=== PATIENT | female | born 1980 | race Caucasian/White ===

== ENCOUNTER 2022-07-11 14:45 | Outpatient (CLI) | payer OTHER, SELFPAY ==
--- NOTE | 2022-07-11 14:40 | CRLHL7_ITS ---
For Patients: As a result of the Century Cures Act, medical imaging exams and procedure reports are released immediately into your electronic medical record. You may view this report before your referring provider. If you have questions, please contact your health care provider. BILATERAL SCREENING MAMMOGRAM WITH COMPUTER-AIDED DETECTION AND TOMOSYNTHESIS TECHNIQUE: CC and MLO views were obtained. These mammographic images have been obtained using full-field digital technique. These mammographic images were interpreted with the benefit of computer-aided detection. Breast Tomosynthesis was used in this interpretation. COMPARISON FILM: 04/13/21. FINDINGS: There are scattered areas of fibroglandular density IMPRESSION: There is no radiographic evidence for malignancy. ASSESSMENT: BI-RADS Category 1: Negative RECOMMENDATION: Routine screening mammogram in 1 year. A lay language report of this examination will be provided to the patient. Dillon Curtis M.D. Diagnostic Radiologist [email or web address] KWAME/Dictated by: Dillon Curtis MD @ 07/12/2022 1:16:00 PM (Electronically Signed)
== END 2022-07-11 14:46 | disposition home or self-care (01) ==
PROVIDERS: PCP Physician Assistant Medical
DX: Z12.31 Encounter for screening mammogram for malignant neoplasm of breast (principal)
CPT/HCPCS: 77063; 77067

== ENCOUNTER 2022-08-09 19:39 | Outpatient (CLI) | payer OTHER, SELFPAY | END 2022-08-09 19:40 | disposition home or self-care (01) | LOC: LKVREF 19:39 | PROVIDERS: PCP Physician Assistant Medical; Visit Provider Emergency Medicine | DX: I10 Essential (primary) hypertension (principal); R53.83 Other fatigue; R41.9 Unspecified symptoms and signs involving cognitive functions and awareness | CPT/HCPCS: 80048 ==

== ENCOUNTER 2022-10-13 13:21 | Outpatient (CLI) | payer OTHER, SELFPAY ==
[2022-10-13 22:12] LABS: C Reactive Protein* 0.6 mg/dL (0.5-1.0)
== END 2022-10-13 13:22 | disposition home or self-care (01) ==
PROVIDERS: PCP Physician Assistant Medical; Visit Provider Family Medicine
DX: Z00.00 Encounter for general adult medical examination without abnormal findings (principal); R53.83 Other fatigue; I10 Essential (primary) hypertension; H04.123 Dry eye syndrome of bilateral lacrimal glands; M79.7 Fibromyalgia; Z13.6 Encounter for screening for cardiovascular disorders; Z11.59 Encounter for screening for other viral diseases
CPT/HCPCS: 80053; 80061; 86039; 86140; 86225; 86235; 86803

== ENCOUNTER 2022-11-22 10:49 | Outpatient (CLI) | payer OTHER, SELFPAY ==
--- NOTE | 2022-11-22 11:00 | CRLHL7_ITS ---
For Patients: As a result of the Century Cures Act, medical imaging exams and procedure reports are released immediately into your electronic medical record. You may view this report before your referring provider. If you have questions, please contact your health care provider. INDICATION: Breast and chest pain. TECHNIQUE: Contrast-enhanced chest CT. 75 cc nonionic Isovue-370 administered. COMPARISON: Correlation is made with a two-view chest x-ray July 12, 2017. Correlation is made with a recent mammogram July 11, 2022. FINDINGS: Both lungs are expanded without pneumothoraces are infiltrates. 2 mm subpleural pulmonary nodule right lower lobe of the lung image 68 series 3 is a tiny calcified granuloma. No additional intrapulmonary nodules. The trachea and mainstem bronchi are patent and clear. The included thyroid gland and included breast tissue are within normal limits. Normal caliber thoracic aorta. No thoracic lymphadenopathy. No pleural or pericardial effusions. Images of the upper abdomen demonstrate normal adrenal glands. No definite splenomegaly. The included skeleton is within normal limits. No rib or sternal fracture identified. IMPRESSION: 1. Tiny calcified granuloma subpleural right lower lobe of the lung. 2. No acute cardiopulmonary process identified. 3. The included breasts are unremarkable. 4. The included skeleton is within normal limits. Please note that all CT scans at this facility use dose modulation, iterative reconstruction, and/or weight-based dosing when appropriate to reduce radiation dose to as low as reasonably achievable. Dictated by Geovanny Conroy MD @ 11/22/2022 3:57:29 PM (Electronically Signed)
== END 2022-11-22 10:50 | disposition home or self-care (01) ==
LOC: CT 10:50
PROVIDERS: PCP Family Medicine; Visit Provider Family Medicine
DX: R07.89 Other chest pain (principal); R91.8 Other nonspecific abnormal finding of lung field; M79.622 Pain in left upper arm
CPT/HCPCS: 71260; Q9967

== ENCOUNTER 2023-07-19 10:36 | Outpatient (CLI) | payer OTHER, SELFPAY ==
--- NOTE | 2023-07-19 10:45 | CRLHL7_ITS ---
For Patients: As a result of the Century Cures Act, medical imaging exams and procedure reports are released immediately into your electronic medical record. You may view this report before your referring provider. If you have questions, please contact your health care provider. BILATERAL SCREENING MAMMOGRAM WITH COMPUTER-AIDED DETECTION AND TOMOSYNTHESIS TECHNIQUE: CC and MLO views were obtained. These mammographic images have been obtained using full-field digital technique. These mammographic images were interpreted with the benefit of computer-aided detection. Breast Tomosynthesis was used in this interpretation. COMPARISON FILM: 07/11/22, 04/13/21. FINDINGS: There are scattered areas of fibroglandular density IMPRESSION: There is no radiographic evidence for malignancy. ASSESSMENT: BI-RADS Category 1: Negative RECOMMENDATION: Routine screening mammogram in 1 year. A lay language report of this examination will be provided to the patient. Jane Watson M.D. Diagnostic/Breast Radiologist [email or web address] KWAME/Dictated by: Jane Watson MD @ 07/20/2023 11:21:00 AM (Electronically Signed)
== END 2023-07-19 10:37 | disposition home or self-care (01) ==
PROVIDERS: PCP Family Medicine; Visit Provider Family Medicine
DX: Z12.31 Encounter for screening mammogram for malignant neoplasm of breast (principal)
CPT/HCPCS: 77063; 77067

== ENCOUNTER 2023-10-23 16:22 | Outpatient (CLI) | payer BC, OTHER, SELFPAY | END 2023-10-23 16:23 | disposition home or self-care (01) | PROVIDERS: PCP Family Medicine; Visit Provider Family Medicine | DX: I10 Essential (primary) hypertension (principal); R73.09 Other abnormal glucose; N91.1 Secondary amenorrhea; F32.A Depression, unspecified; F41.9 Anxiety disorder, unspecified | CPT/HCPCS: 80053; 80061; 82043; 82570; 83001; 84146; 84443 ==

== ENCOUNTER 2023-11-21 14:09 | Outpatient (CLI) | payer BC, OTHER, SELFPAY | END 2023-11-21 14:10 | disposition home or self-care (01) | LOC: NFLDREF 14:10 | PROVIDERS: PCP Family Medicine; Visit Provider Obstetrics & Gynecology | DX: E28.2 Polycystic ovarian syndrome (principal) | CPT/HCPCS: 83498 ==

== ENCOUNTER 2023-12-04 14:04 | Outpatient (CLI) | payer BC, OTHER, SELFPAY ==
--- NOTE | 2023-12-04 14:00 | US_ITS ---
Patient: KALLI STEINER Facility:?[facility] Patient ID:?[id number] Site Patient ID:?[id number]. Site :?[id number] Study:?US-Pelvis -12/04/2023 2:55:32 PM Ordering Physician:Alanis Weber Final Report: INDICATION: Abnormal uterine and vaginal bleeding. COMPARISON: 11/12/2021 FINDINGS: Transvaginal and transabdominal ultrasound examination of the female pelvis was performed. Initial examination is performed with transabdominal technique and transvaginal technique is used for better visualization of the pelvic structures. The uterus is anteverted with stable appearance of a small subserosal right posterior lower uterine segment fibroid which measures 1.6 x 1.6 x 1.2 centimeters, previously 2.1 x 1.1 x 1.2 centimeters. The uterus remains normal in size, measuring 8.3 x 6.0 x 4.8 cm. 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 The endometrial lining on the right measures 10 millimeters in thickness and on the left measures 6 millimeters, within normal limits for a menstruating patient There are new hemorrhagic cysts in both ovaries. A hemorrhagic cyst on the right measures 2.2 x 1.9 x 1.5 centimeters. A hemorrhagic cyst in the left ovary measures 2.9 x 2.0 x 1.3 centimeters. These require no further follow-up. There is also a right paraovarian simple cyst measuring 2.6 x 2.4 x 1.7 centimeters. This requires no further follow-up. The ovaries are normal in size, the right measuring 3.1 x 2.8 x 2.8 cm and the left measuring 5.0 x 2.2 x 1.4 cm. There is normal color and pulse doppler flow in both ovaries. There is a trace amount of free fluid in the cul-de-sac, probably physiologic. IMPRESSION: 1. The uterus is again seen to be bicornuate. 2. Normal endometrial thickness in both cornua. 3. Stable small subserosal fibroid of no clinical concern. 4. New small hemorrhagic cysts in both ovaries requiring no further follow-up. 5. New simple right paraovarian cyst measuring up to 2.6 centimeters in diameter requiring no further follow-up. Dictated by Harris Levine MD @ 12/04/2023 10:19:32 PM Signed by:?Harris Levine MD @12/04/2023 10:19:32 PM (Electronic Signature)
== END 2023-12-04 14:05 | disposition home or self-care (01) ==
LOC: US 14:05
PROVIDERS: PCP Family Medicine; Visit Provider Obstetrics & Gynecology
DX: N93.9 Abnormal uterine and vaginal bleeding, unspecified (principal); R93.89 Abnormal findings on diagnostic imaging of other specified body structures; N83.201 Unspecified ovarian cyst, right side; N83.202 Unspecified ovarian cyst, left side
CPT/HCPCS: 76830; 76856

== ENCOUNTER 2024-07-22 11:23 | Outpatient (CLI) | payer BC, OTHER, SELFPAY ==
--- NOTE | 2024-07-22 11:30 | CRLHL7_ITS ---
For Patients: As a result of the Century Cures Act, medical imaging exams and procedure reports are released immediately into your electronic medical record. You may view this report before your referring provider. If you have questions, please contact your health care provider. BILATERAL SCREENING MAMMOGRAM WITH COMPUTER-AIDED DETECTION AND TOMOSYNTHESIS TECHNIQUE: CC and MLO views were obtained. These mammographic images have been obtained using full-field digital technique. These mammographic images were interpreted with the benefit of computer-aided detection. Breast Tomosynthesis was used in this interpretation. COMPARISON FILM: 07/19/23, 07/11/22, 04/13/21. FINDINGS: There are scattered areas of fibroglandular density. IMPRESSION: There is no radiographic evidence for malignancy. ASSESSMENT: BI-RADS Category 2: Benign RECOMMENDATION: Routine screening mammogram in 1 year. A lay language report of this examination will be provided to the patient. Dillon Curtis M.D. Diagnostic Radiologist [email or web address] SP/Dictated by: Dillon Curtis MD @ 07/22/2024 12:38:00 PM (Electronically Signed)
== END 2024-07-22 11:24 | disposition home or self-care (01) ==
LOC: MAMMO 11:23
PROVIDERS: PCP Family Medicine; Visit Provider Family Medicine
DX: Z12.31 Encounter for screening mammogram for malignant neoplasm of breast (principal)
CPT/HCPCS: 77063; 77067

== ENCOUNTER 2025-02-03 15:42 | Outpatient (CLI) | payer OTHER, SELFPAY ==
[2025-02-05 20:00] LABS: HPV Source Endocervical
== END 2025-02-03 15:43 | disposition home or self-care (01) ==
PROVIDERS: PCP Family Medicine; Visit Provider Family Medicine
DX: I10 Essential (primary) hypertension (principal); R53.83 Other fatigue; Z12.4 Encounter for screening for malignant neoplasm of cervix; Z13.6 Encounter for screening for cardiovascular disorders; Z13.1 Encounter for screening for diabetes mellitus; Z11.51 Encounter for screening for human papillomavirus (HPV)
CPT/HCPCS: 80053; 80061; 82043; 82570; 87624; 87625; 88141; 88142